=== PATIENT | female | born 1995 | race Caucasian/White ===

== ENCOUNTER 2022-07-04 07:03 | Day surgery (SDC) | payer BC, OTHER ==
[~2022-07-04] VITALS: Ht 152 cm; Wt 86.0 kg
--- NOTE | 2022-07-04 07:25 | ED Abdominal Pain ---
General Chief Complaint: Abdominal/GI Problems Stated Complaint: ABD PAIN Nursing Triage Note: PT AMB TO [facility] 5 PT CO OF LOWER ABD PAIN UPON AWAKENING THIS AM. PT RATES PAIN 8-9 AT THIS X. PT HAS VOMITED X1. NO DIARRHEA Source of Information: Patient Exam Limitations: No Limitations History of Present Illness Date Seen by Provider: Jul 04, 2022 Time Seen by Provider: 07:14 Initial Comments 27-year-old female presents the emergency department today for suprapubic pain. Symptoms started about 430 this morning and have been persistent. Is described as a dull throbbing sensation that comes in waves. She denies any fevers or chills. No changes in bowel or bladder habits. No vaginal symptoms. He has PCOS as she has had irregular menstrual cycles. At the beginning of the month she had spotting for about 5 days. She and her have been trying to get so she took a test which was reportedly negative. She has never really had pain like this before. She initially thought it was gas of the started mildly and has now become severe. She did vomit once this morning, she thinks because of pain. Allergies and Home Medications Allergies Coded Allergies: No Known Drug Allergies (Unverified , 07/04/22) Patient Home Medication List Home Medication List Reviewed: Yes Review of Systems Review of Systems Constitutional: no symptoms reported EENTM: No Symptoms Reported Respiratory: No Symptoms Reported Cardiovascular: No Symptoms Reported Gastrointestinal: Abdominal Pain Genitourinary: No Symptoms Reported Musculoskeletal: no symptoms reported Skin: no symptoms reported Psychiatric/Neurological: No Symptoms Reported Endocrine: No Symptoms Reported Hematologic/Lymphatic: No Symptoms Reported Past Qcxasez-Avhckw-Hgzegw Hx Patient Social History Tobacco Use?: No Substance use?: No Alcohol Use?: No Pt feels they are or have been: No Past Medical History Last Menstrual Period: Jun 11, 2022 Family Medical History Reviewed Nursing Family Hx No Pertinent Family Hx Physical Exam Vital Signs Vital Signs - First Documented 07/04/22 07:10 Temp 35.9 Pulse 89 Resp 20 B/P (MAP) 138/90 (106) Pulse Ox 98 Capillary Refill : Less Than 3 Seconds Height/Weight/BMI Height: '" Weight: lbs. oz. kg; 37.00 BMI Method: General Appearance: WD/WN, mild distress HEENT: normal ENT inspection, pharynx normal Neck: non-tender, supple Respiratory: chest non-tender, lungs clear, normal breath sounds, no respiratory distress, no accessory muscle use Cardiovascular: regular rate, rhythm, no edema, no gallop, no JVD, no murmur Gastrointestinal: normal bowel sounds, soft, no organomegaly, tenderness (There is palpation in suprapubic region with voluntary guarding. No rebound tenderness. No mass organomegaly. No skin changes.) Extremities: normal range of motion, non-tender, normal inspection, no calf tenderness, normal capillary refill Back: normal inspection, no CVA tenderness, no vertebral tenderness Neurologic/Psychiatric: alert, normal mood/affect, oriented x 3 Skin: normal color, warm/dry Lymphatic: no adenopathy Progress/Results/Core Measures Results/Orders Lab Results Laboratory Tests Test 07/04/22 07:20 07/04/22 07:58 07/04/22 08:05 Range/Units White Blood Count 7.6 4.3-11.0 10^3/uL Red Blood Count 4.41 3.80-5.11 10^6/uL Hemoglobin 13.5 11.5-16.0 g/dL Hematocrit 40 35-52 % Mean Corpuscular Volume 91 80-99 fL Mean Corpuscular Hemoglobin 31 25-34 pg Mean Corpuscular Hemoglobin Concent 34 32-36 g/dL Red Cell Distribution Width 13.0 10.0-14.5 % Platelet Count 359 130-400 10^3/uL Mean Platelet Volume 10.1 9.0-12.2 fL Immature Granulocyte % (Auto) 0 % Neutrophils (%) (Auto) 62 42-75 % Lymphocytes (%) (Auto) 28 12-44 % Monocytes (%) (Auto) 10 0-12 % Eosinophils (%) (Auto) 0 0-10 % Basophils (%) (Auto) 0 0-10 % Neutrophils # (Auto) 4.7 1.8-7.8 10^3/uL Lymphocytes # (Auto) 2.1 1.0-4.0 10^3/uL Monocytes # (Auto) 0.8 0.0-1.0 10^3/uL Eosinophils # (Auto) 0.0 0.0-0.3 10^3/uL Basophils # (Auto) 0.0 0.0-0.1 10^3/uL Immature Granulocyte # (Auto) 0.0 0.0-0.1 10^3/uL Sodium Level 137 135-145 MMOL/L Potassium Level 3.9 3.6-5.0 MMOL/L Chloride Level 105 98-107 MMOL/L Carbon Dioxide Level 22 21-32 MMOL/L Anion Gap 10 5-14 MMOL/L Blood Urea Nitrogen 10 7-18 MG/DL Creatinine 0.75 0.60-1.30 MG/DL Estimat Glomerular Filtration Rate 113 BUN/Creatinine Ratio 13 Glucose Level 112 H 70-105 MG/DL Calcium Level 9.2 8.5-10.1 MG/DL Corrected Calcium 8.9 8.5-10.1 MG/DL Total Bilirubin 0.6 0.1-1.0 MG/DL Aspartate Amino Transf (AST/SGOT) 25 5-34 U/L Alanine Aminotransferase (ALT/SGPT) 29 0-55 U/L Alkaline Phosphatase 63 40-136 U/L Total Protein 7.7 6.4-8.2 GM/DL Albumin 4.4 3.2-4.5 GM/DL Lipase 26 8-78 U/L Urine Color YELLOW Urine Clarity CLEAR Urine pH 8.0 5-9 Urine Specific [place] 1.020 1.016-1.022 Urine Protein NEGATIVE NEGATIVE Urine Glucose (UA) NEGATIVE NEGATIVE Urine Ketones NEGATIVE NEGATIVE Urine Nitrite NEGATIVE NEGATIVE Urine Bilirubin NEGATIVE NEGATIVE Urine Urobilinogen 0.2 < = 1.0 MG/DL Urine Leukocyte Esterase NEGATIVE NEGATIVE Urine RBC (Auto) NEGATIVE NEGATIVE Urine RBC NONE /HPF Urine WBC 0-2 /HPF Urine Squamous Epithelial Cells 2-5 /HPF Urine Crystals NONE /LPF Urine Bacteria MODERATE H /HPF Urine Casts NONE /LPF Urine Mucus SMALL H /LPF Urine Culture Indicated YES Urine Test NEGATIVE NEGATIVE My Orders Orders - JODIE RED DO Lipase (07/04/22 07:18) Ua Culture If Indicated (07/04/22 07:18) Hcg,Qualitative Urine (07/04/22 07:18) Comprehensive Metabolic Panel (07/04/22 07:18) Cbc With Automated Diff (07/04/22 07:18) Ct Abdomen/Pelvis W (07/04/22 07:18) Fentanyl Inj (Sublimaze Injection) (07/04/22 07:30) Ondansetron Injection (Zofran Injectio (07/04/22 07:30) Iohexol Injection (Omnipaque 350 Mg/Ml 1 (07/04/22 07:30) Received Contrast (Hold Metformin- Contr (07/04/22 07:30) Ns (Ivpb) (Sodium Chloride 0.9% Ivpb Bag (07/04/22 07:30) Urine Culture (07/04/22 07:58) Morphine Injection (Morphine Injection (07/04/22 09:05) Us Non Ob Pelvis Comp/Transvag (07/04/22 08:53) Ed Admission (Communication) (07/04/22 10:57) Medications Given in ED Current Medications Medications Dose Ordered Sig/Yovany Route Start Time Stop Time Status Last Admin Dose Admin Fentanyl Citrate 50 mcg ONCE ONCE IVP 07/04/22 07:30 07/04/22 07:31 DC 07/04/22 07:31 50 MCG Iohexol 100 ml ONCE ONCE IV 07/04/22 07:30 07/04/22 07:34 DC 07/04/22 08:17 80 ML Ondansetron HCl 8 mg ONCE ONCE IVP 07/04/22 07:30 07/04/22 07:31 DC 07/04/22 07:32 8 MG Sodium Chloride 100 ml ONCE ONCE IV 07/04/22 07:30 07/04/22 07:34 DC 07/04/22 08:17 80 ML Vital Signs/I&O 07/04/22 07:10 Temp 35.9 Pulse 89 Resp 20 B/P (MAP) 138/90 (106) Pulse Ox 98 Blood Pressure Mean: 106 Departure Communication (Admissions) Pt with significant pain despite pain medications. Has large ovarian cyst on CT, concern for possible torsion given pain. US obtained and showed good blood flow. Spoke to Dr Chau who accepts the patient in observation for pain control and to monitor for need for operative management. Patient is agreeable to plan of care. Impression Primary Impression: Ovarian cyst Qualified Codes: N83.201 - Unspecified ovarian cyst, right side Additional Impression: Abdominal pain Qualified Codes: R10.30 - Lower abdominal pain, unspecified Disposition: ADMITTED INPATIENT Condition: Stable Admissions Decision to Admit Reason: Admit from ER (General) TEOFILOYOGI OronaRashad Grant DO Jul 04, 2022 07:25
[2022-07-04] MEDS ORDERED: NS 100 ML (IVPB) BAG IV ONE (07:30)
[2022-07-04] MEDS ORDERED: HOLD METFORMIN - RECEIVED CONTRAST 20 ML VIAL IV SCH (07:30)
[2022-07-04] MEDS ORDERED: ONDANSETRON 4 MG/2 ML (SDV) Z0FRAN IVP ONE (07:30)
[2022-07-04] MEDS ORDERED: fentaNYL INJ 100 MCG/2 ML AMP IVP ONE (07:30)
[2022-07-04] MEDS ORDERED: IOHEXOL 350 MG/ML 100 ML (OMNIPAQUE 350) VIAL IV ONE (07:30)
[2022-07-04 07:32] LABS: BASOPHILS % (AUTO) 0 % (0-10); EOSINOPHILS % (AUTO) 0 % (0-10); HEMATOCRIT 40 % (35-52); HEMOGLOBIN 13.5 g/dL (11.5-16.0); LYMPHOCYTES # (AUTO) 2.1 10^3/uL (1.0-4.0); LYMPHOCYTES % (AUTO) 28 % (12-44); MEAN CORPUSCULAR HEMOGLOBIN 31 pg (25-34); MEAN CORPUSCULAR HGB CONC 34 g/dL (32-36); MEAN CORPUSCULAR VOLUME 91 fL (80-99); MEAN PLATELET VOLUME 10.1 fL (9.0-12.2); MONOCYTES # (AUTO) 0.8 10^3/uL (0.0-1.0); MONOCYTES % (AUTO) 10 % (0-12); NEUTROPHILS # (AUTO) 4.7 10^3/uL (1.8-7.8); NEUTROPHILS % (AUTO) 62 % (42-75); PLATELET COUNT 359 10^3/uL (130-400); WHITE BLOOD COUNT 7.6 10^3/uL (4.3-11.0)
[2022-07-04 07:46] LABS: ALBUMIN 4.4 GM/DL (3.2-4.5); POTASSIUM 3.9 MMOL/L (3.6-5.0)
[2022-07-04 07:47] LABS: CALCIUM 9.2 MG/DL (8.5-10.1)
[2022-07-04 07:49] LABS: TOTAL PROTEIN 7.7 GM/DL (6.4-8.2)
[2022-07-04 07:50] LABS: BILIRUBIN,TOTAL 0.6 MG/DL (0.1-1.0)
[2022-07-04 07:52] LABS: CREATININE SERUM 0.75 MG/DL (0.60-1.30)
[2022-07-04 08:11] LABS: BILIRUBIN,URINE NEGATIVE (NEGATIVE); CLARITY,URINE CLEAR; COLOR,URINE YELLOW; GLUCOSE, URINE (UA) NEGATIVE (NEGATIVE); KETONES,URINE NEGATIVE (NEGATIVE); LEUKOCYTE ESTERASE ,URINE NEGATIVE (NEGATIVE); NITRITE,URINE NEGATIVE (NEGATIVE); PROTEIN,URINE NEGATIVE (NEGATIVE)
[2022-07-04 08:19] LABS: BACTERIA,URINE MODERATE /HPF; WBC,URINE 0-2 /HPF
--- NOTE | 2022-07-04 08:48 | Diagnostic Imaging Report ---
Clinical indication: Patient with lower abdominal pain, midline pain. EXAM: Axial CT scan of the abdomen and pelvis performed with 80 mL of Omnipaque 350 IV contrast. Sagittal and coronal reformatted images are created. Auto Exposure Controls were utilized during the CT exam to meet ALARA standards for radiation dose reduction. COMPARISON: None. FINDINGS: Visualized lung bases are clear. 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 The liver, spleen, gallbladder, and adrenal glands are unremarkable. Both kidneys are unremarkable. There is no intestinal obstruction. The appendix is unremarkable. There is no intra-abdominal free air or free fluid. There is a 9.6 cm x 15.8 cm x 12.7 cm (AP x Trans x CC) cystic mass which appears to arise from the right adnexal region. This mass extends superiorly into the [id number] abdominal region across the midline. There is displacement of intestinal contents. The right ovary is also prominent measuring roughly 4.5 cm x 3.5 cm in greatest axial dimensions. The left adnexal structures are unremarkable. There are multiple mesenteric lymph nodes seen which are subcentimeter in shortest axis. The extra-abdominal and extrapelvic soft tissue structures are unremarkable. IMPRESSION: 1: There is a 15.8 cm cystic mass arising from the right adnexal region. Transabdominal and pelvic ultrasound suggested for further evaluation. 2: The remainder of this exam shows no other significant abnormality. Dictated by: Dictated on workstation # [id number]
[2022-07-04] MEDS ORDERED: morphine INJ 10 MG/ML 1ML (SYR OR VIAL) IVP STA (09:05)
--- NOTE | 2022-07-04 10:30 | Diagnostic Imaging Report ---
PROCEDURE: US Non-ob pelvis comp/trans. INDICATION: Lower abdominal pain. CT imaging with pelvic mass. TECHNIQUE: Multiple real time pablo scale sonographic images were obtained of the pelvis transabdominally and endovaginally. CORRELATION STUDY: None FINDINGS: UTERUS: 7.4 x 3.7 x 4.4 cm. The uterus appearing unremarkable. ENDOMETRIUM: 1.3 cm. The endometrium is of normal thickness. RIGHT OVARY: 5.2 x 2.8 x 4.0 cm. LEFT OVARY: 2.8 x 2.6 x 2.1 cm. There is a large, complex but likely cystic mass in the right adnexa immediately adjacent to the right ovary. This measures approximately 9.1 x 12.2 x 12.8 cm. No internal vascularity. Ovarian blood flow is present. No significant free pelvic fluid. IMPRESSION: 1. Large, approximately 13 cm complex likely cystic mass at the right adnexa. May reflective of a large complex perhaps hemorrhagic cyst. Short-term follow-up ultrasound imaging is recommended. No evidence to suggest ovarian torsion. Dictated by: Dictated on workstation # [id number]
[2022-07-04 11:28] VITALS: BP 110/60
[2022-07-04] MEDS ORDERED: oxyCODONE/APAP 5/325MG (PERCOCET 5) TABLET PO PRN (11:45)
[2022-07-04] MEDS ORDERED: ONDANSETRON 4 MG (ZOFRAN) ORAL DISSOLVE TAB PO PRN (11:45)
[2022-07-04] MEDS ORDERED: KETOROLAC 30 MG/ML VIAL IVP NR (12:00)
[2022-07-04] MEDS ORDERED: D5 LR IV SOLUTION 1,000 ML IV SCH (13:30)
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
[2022-07-04 15:50] VITALS: BP 112/68
[2022-07-04 18:31] VITALS: BP 112/68
== END 2022-07-04 18:43 | disposition home or self-care (01) ==
LOC: ER 07:05 → SDC 10:58 → WS 10:58 → UNDOADMOB 10:58 → UNDODISOB 18:43 → SDC 18:43
PROVIDERS: ATTEND Obstetrics & Gynecology
DX: N83.201 Unspecified ovarian cyst, right side (principal)
CPT/HCPCS: 36415; 74177; 76830; 76856; 80053; 81000; 83690; 84703; 85025; 87088; 96374; 96375